=== PATIENT | male | born 1955 | race Caucasian/White ===

== ENCOUNTER 2016-08-27 09:00 | Outpatient (RCR) | payer BC ==
[2016-05-21 01:50] VITALS: BP 138/87
[~2016-08-27 09:00] MED LIST: AMOXICILLIN 8751 TAB PO; BOTT PO; ED NORCO 56 UDTAB/BO PO; GLIMEPIRIDE4 MG PO; GLIPIZIDE ER2.5 MG; GLUCOPHAGE1000 MG PO; METHOCARBAMOL750 MG PO; MOBIC15 MG PO; OXYCODONE5 M1 PO; PRINIVIL10 M1 PO; PRINIVIL2.5 MG PO; [UNRECOGNIZED DRUG - OTHER] PO
== END 2016-09-15 08:00 | disposition home or self-care (01) ==
LOC: PT 09:00
DX: M48.06 Spinal stenosis, lumbar region (principal)

== ENCOUNTER → 2017-02-25 | Outpatient (CLI) | payer BC ==
[2016-05-21 01:50] VITALS: BP 138/87
== END ==
LOC: LAB 07:40
DX: I10 Essential (primary) hypertension (principal); E11.9 Type 2 diabetes mellitus without complications

== ENCOUNTER → 2017-11-11 | Outpatient (CLI) | payer OTHER ==
[2016-05-21 01:50] VITALS: BP 138/87
== END ==
LOC: CARDREHAB 07:41 → CARDLAB 07:41
DX: R07.9 Chest pain, unspecified (principal)

== ENCOUNTER → 2017-12-23 | Outpatient (CLI) | payer OTHER ==
[2016-05-21 01:50] VITALS: BP 138/87
== END ==
LOC: RAD 09:53
DX: R10.9 Unspecified abdominal pain (principal)

== ENCOUNTER 2018-03-11 14:53 | Outpatient (RCR) | payer OTHER ==
[~2018-03-11] VITALS: Ht 172.7 cm; Wt 90.9 kg
[~2018-03-11 14:53] MED LIST changes: -LANTUS PEN100 U/ML SQ
[2018-03-11] MEDS ORDERED: LANTUS PEN100 U/ML SQ (15:49)
[2018-03-11 16:15] VITALS: BP 139/88
[2018-03-11 16:41] VITALS: BP 140/87
[2018-03-12 15:26] VITALS: BP 119/76
[2018-03-12 15:58] VITALS: BP 129/79
== END 2018-03-12 16:30 | disposition home or self-care (01) ==
LOC: AMSURD 14:53
DX: L03.114 Cellulitis of left upper limb (principal); B99.9 Unspecified infectious disease
CPT/HCPCS: J0696

== ENCOUNTER → 2018-03-11 | Outpatient (CLI) | payer OTHER ==
[2016-05-21 01:50] VITALS: BP 138/87
[~2018-03-11] MED LIST changes: +LANTUS PEN100 U/ML SQ
[2018-03-11 15:41] LABS: EOS # 0.2 (0.04-0.40); EOS % 1.7 % (0.0-4.0); HEMATOCRIT 39.6 % (42.0-52.0); HEMOGLOBIN 13.6 g/dL (13.5-18.0); LYMPH# 1.4 (1.50-4.00); MEAN CELL VOLUME 91 fl (78-100); MEAN CORPUSCULAR HEMOGLOBIN 31 pg (27-31); MEAN CORPUSCULAR HGB CONC 34 g/dL (33-37); MONO # 0.9 (0.20-0.80); NEU # 6.3 (1.40-6.50); PLATELET COUNT 200 K/mm3 (130-400); RED BLOOD COUNT 4.36 M/mm3 (4.20-5.60); RED CELL DISTRIBUTION WIDTH 12.1 % (11.5-14.5); WHITE BLOOD COUNT 8.8 K/mm3 (4.8-10.8)
[2018-03-11 15:51] LABS: BUN/CREATININE RATIO 18.8 (6.0-26.0); CALCIUM 9.3 mg/dL (8.4-10.2); POTASSIUM 4.6 mmol/L (3.6-5.0)
[2018-03-11 16:44] LABS: ERYTHROCYTE SEDIMENTATION RATE 79 mm/hr (0-20)
== END ==
LOC: LAB 14:06 → AMSURD 14:06
PROVIDERS: Family Medicine
DX: L03.114 Cellulitis of left upper limb (principal)

== ENCOUNTER → 2018-08-02 | Outpatient (CLI) | payer BC, OTHER ==
[~2018-08-02] MED LIST changes: +LANTUS PEN100 U/ML SQ
== END ==
LOC: RAD 09:39
DX: M77.31 Calcaneal spur, right foot (principal)

== ENCOUNTER → 2018-10-28 | Outpatient (CLI) | payer BC, OTHER ==
[2018-10-28 08:38] LABS: EOS % 0.3 % (0.0-4.0); HEMATOCRIT 40.3 % (42.0-52.0); HEMOGLOBIN 13.5 g/dL (13.5-18.0); LYMPH# 1.7 (1.50-4.00); MEAN CELL VOLUME 91 fl (78-100); MEAN CORPUSCULAR HEMOGLOBIN 31 pg (27-31); MEAN CORPUSCULAR HGB CONC 34 g/dL (33-37); MONO # 0.5 (0.20-0.80); NEU # 3.8 (1.40-6.50); PLATELET COUNT 143 K/mm3 (130-400); RED BLOOD COUNT 4.42 M/mm3 (4.20-5.60); RED CELL DISTRIBUTION WIDTH 12.5 % (11.5-14.5); WHITE BLOOD COUNT 6.1 K/mm3 (4.8-10.8)
[2018-10-28 08:44] LABS: ALBUMIN 4.4 g/dL (3.5-5.0); CALCIUM 9.1 mg/dL (8.4-10.2); POTASSIUM 4.2 mmol/L (3.6-5.0); TOTAL BILIRUBIN 0.5 mg/dL (0.2-1.3); TOTAL PROTEIN 7.3 g/dL (6.3-8.2)
[2018-10-28 09:18] LABS: MEAN PLATELET VOLUME 12.3 fl (7.4-10.4)
== END ==
LOC: LAB 07:05
PROVIDERS: Family Medicine
DX: I10 Essential (primary) hypertension (principal); E11.9 Type 2 diabetes mellitus without complications

== ENCOUNTER → 2019-08-31 | Outpatient (CLI) | payer OTHER | LOC: RAD 09:28 | DX: M47.816 Spondylosis without myelopathy or radiculopathy, lumbar region (principal) ==

== ENCOUNTER → 2020-09-26 | Outpatient (CLI) | payer OTHER | LOC: LAB 09:04 | DX: I25.10 Atherosclerotic heart disease of native coronary artery without angina pectoris (principal); I10 Essential (primary) hypertension; E78.2 Mixed hyperlipidemia; Z78.9 Other specified health status ==

== ENCOUNTER → 2020-12-09 | Outpatient (CLI) | payer OTHER | LOC: RAD 09:25 | DX: M47.816 Spondylosis without myelopathy or radiculopathy, lumbar region (principal); M47.817 Spondylosis without myelopathy or radiculopathy, lumbosacral region; M48.061 Spinal stenosis, lumbar region without neurogenic claudication; M51.16 Intervertebral disc disorders with radiculopathy, lumbar region; Z98.890 Other specified postprocedural states | CPT/HCPCS: A9585 ==

== ENCOUNTER → 2020-12-11 | Outpatient (CLI) | payer OTHER | LOC: RAD 12-09 10:00 | DX: M47.812 Spondylosis without myelopathy or radiculopathy, cervical region (principal); M48.02 Spinal stenosis, cervical region; M51.14 Intervertebral disc disorders with radiculopathy, thoracic region; M48.04 Spinal stenosis, thoracic region ==

== ENCOUNTER 2021-01-29 12:53 | Outpatient (RCR) | payer OTHER | END 2021-02-12 17:00 | disposition still patient (30) | LOC: PT 12:53 | DX: M51.16 Intervertebral disc disorders with radiculopathy, lumbar region (principal) ==

== ENCOUNTER → 2021-01-29 | Outpatient (REF) | LOC: LAB 07:54 | DX: Z00.00 Encounter for general adult medical examination without abnormal findings (principal); E78.5 Hyperlipidemia, unspecified; E11.9 Type 2 diabetes mellitus without complications ==

== ENCOUNTER → 2021-05-15 | Outpatient (CLI) | payer OTHER | LOC: AMSURD 14:04 | DX: Z01.812 Encounter for preprocedural laboratory examination (principal) ==

== ENCOUNTER → 2021-05-15 | Outpatient (REF) | LOC: LAB 14:04 → EDSTATUS 17:26 | DX: Z01.812 Encounter for preprocedural laboratory examination (principal); K90.9 Intestinal malabsorption, unspecified; E11.37X9 Type 2 diabetes mellitus with diabetic macular edema, resolved following treatment, unspecified eye ==

== ENCOUNTER → 2022-02-16 | Outpatient (CLI) | payer BC ==
[2022-02-16 07:42] LABS: BASO # 0.04 K/mm3 (0.02-0.10); EOS # 0.23 K/mm3 (0.04-0.40); EOS % 4.8 % (0.0-4.0); HEMATOCRIT 42.9 % (42.0-52.0); HEMOGLOBIN 14.8 g/dL (13.5-18.0); MEAN CELL VOLUME 91 fl (78-100); MEAN CORPUSCULAR HEMOGLOBIN 31 pg (27-31); MEAN CORPUSCULAR HGB CONC 35 g/dL (33-37); MONO # 0.42 K/mm3 (0.20-0.80); NEU # 2.58 K/mm3 (1.40-6.50); PLATELET COUNT 123 K/mm3 (130-400); RED BLOOD COUNT 4.74 M/mm3 (4.20-5.60); RED CELL DISTRIBUTION WIDTH 12.1 % (11.5-14.5); WHITE BLOOD COUNT 4.8 K/mm3 (4.8-10.8)
[2022-02-16 08:49] LABS: POTASSIUM 4.4 mmol/L (3.5-5.1)
[2022-02-16 08:50] LABS: ALBUMIN 4.2 g/dL (3.4-4.8)
[2022-02-16 08:51] LABS: CALCIUM 9.7 mg/dL (8.3-10.5)
[2022-02-16 08:52] LABS: TOTAL PROTEIN 6.9 g/dL (6.2-8.1)
[2022-02-16 08:54] LABS: TOTAL BILIRUBIN 0.7 mg/dL (0.2-1.2)
== END ==
LOC: LAB 07:19 → EDSTATUS 11:53
PROVIDERS: Family Medicine
DX: Z00.00 Encounter for general adult medical examination without abnormal findings (principal); E78.5 Hyperlipidemia, unspecified; E11.9 Type 2 diabetes mellitus without complications; E29.1 Testicular hypofunction; D69.6 Thrombocytopenia, unspecified; R74.01 Elevation of levels of liver transaminase levels

== ENCOUNTER → 2022-02-18 | Outpatient (CLI) | payer OTHER | LOC: RAD 07:25 | DX: K76.0 Fatty (change of) liver, not elsewhere classified (principal) ==

== ENCOUNTER → 2022-10-13 | Outpatient (CLI) | payer MEDICARE | LOC: RAD 13:56 | DX: R06.09 Other forms of dyspnea (principal) ==

== ENCOUNTER → 2022-10-14 | Outpatient (CLI) | payer MEDICARE ==
[2022-10-14 08:49] LABS: BASO # 0.02 K/mm3 (0.02-0.10); EOS # 0.16 K/mm3 (0.04-0.40); HEMATOCRIT 45.4 % (42.0-52.0); HEMOGLOBIN 15.5 g/dL (13.5-18.0); LYMPH# 1.48 K/mm3 (1.50-4.00); MEAN CELL VOLUME 92 fl (78-100); MEAN CORPUSCULAR HEMOGLOBIN 32 pg (27-31); MEAN CORPUSCULAR HGB CONC 34 g/dL (33-37); MEAN PLATELET VOLUME 11.7 fl (7.4-10.4); MONO # 0.44 K/mm3 (0.20-0.80); NEU # 3.28 K/mm3 (1.40-6.50); PLATELET COUNT 118 K/mm3 (130-400); RED BLOOD COUNT 4.92 M/mm3 (4.20-5.60); RED CELL DISTRIBUTION WIDTH 12.1 % (11.5-14.5); WHITE BLOOD COUNT 5.4 K/mm3 (4.8-10.8)
[2022-10-14 08:52] LABS: POTASSIUM 4.4 mmol/L (3.5-5.1)
[2022-10-14 08:53] LABS: ALBUMIN 4.2 g/dL (3.4-4.8)
[2022-10-14 08:54] LABS: CALCIUM 9.5 mg/dL (8.3-10.5)
[2022-10-14 08:55] LABS: TOTAL PROTEIN 7.1 g/dL (6.2-8.1)
[2022-10-14 08:57] LABS: TOTAL BILIRUBIN 0.5 mg/dL (0.2-1.2)
[2022-10-14 09:29] LABS: PROTHROMBIN TIME 11.2 SECONDS (9.0-12.0)
== END ==
LOC: LAB 08:32
DX: R23.3 Spontaneous ecchymoses (principal); E78.2 Mixed hyperlipidemia; R06.09 Other forms of dyspnea

== ENCOUNTER → 2022-11-22 | Outpatient (CLI) | payer MEDICARE | LOC: RAD 13:00 → VAS 13:03 | DX: I34.0 Nonrheumatic mitral (valve) insufficiency (principal); I10 Essential (primary) hypertension; I25.10 Atherosclerotic heart disease of native coronary artery without angina pectoris ==

== ENCOUNTER → 2023-07-21 | Outpatient (CLI) | payer MEDICARE ==
[~2023-07-21] MED LIST changes: +CARVEDILOL25 MG PO; +DULOXETINE30 MG PO; +FLUTICASONE-VI1 EACH IH; +GLUCOTROL 5M5 MG/TAB PO; +ISOSORBIDE30 MG PO; +LEVOTHYROXIN0.025 MG PO; +LISINOPRIL20 MG PO; +NEURONTIN300 MG/CAP PO; +PANTOPRAZOLE SO40 MG PO; +PAROXETINE HYDR10 MG PO; +ROSUVASTATIN CA40 MG PO; +ST. JOSEPH ASPI81 M1 PO; +TESTOSTERO200 MG/1 M IM
== END ==
LOC: LAB 12:36
DX: Z01.818 Encounter for other preprocedural examination (principal); E11.9 Type 2 diabetes mellitus without complications

== ENCOUNTER → 2023-07-22 | Outpatient (CLI) | payer MEDICARE | LOC: RAD 11:44 | DX: I67.1 Cerebral aneurysm, nonruptured (principal); I65.23 Occlusion and stenosis of bilateral carotid arteries | CPT/HCPCS: Q9967 ==

== ENCOUNTER 2023-08-01 09:53 | Outpatient (RCR) | payer MEDICARE | END 2023-08-21 | disposition home or self-care (01) | LOC: PT | DX: M47.812 Spondylosis without myelopathy or radiculopathy, cervical region (principal) ==

== ENCOUNTER 2023-08-23 08:00 | Outpatient (RCR) | payer MEDICARE | END 2023-09-21 | disposition home or self-care (01) | LOC: PT | DX: M47.812 Spondylosis without myelopathy or radiculopathy, cervical region (principal) ==

== ENCOUNTER 2023-09-22 08:00 | Outpatient (RCR) | payer MEDICARE | END 2023-09-27 17:00 | disposition home or self-care (01) | LOC: PT 08:00 | DX: M47.812 Spondylosis without myelopathy or radiculopathy, cervical region (principal) ==

== ENCOUNTER → 2023-10-19 | Outpatient (CLI) | payer MEDICARE ==
[2023-10-19 09:06] LABS: BASO # 0.01 K/mm3 (0.02-0.10); EOS # 0.15 K/mm3 (0.04-0.40); EOS % 1.8 % (0.0-4.0); HEMOGLOBIN 13.9 g/dL (13.5-18.0); LYMPH# 1.74 K/mm3 (1.50-4.00); MEAN CELL VOLUME 90 fl (78-100); MEAN CORPUSCULAR HEMOGLOBIN 30 pg (27-31); MEAN CORPUSCULAR HGB CONC 34 g/dL (33-37); MEAN PLATELET VOLUME 11.5 fl (7.4-10.4); NEU # 5.97 K/mm3 (1.40-6.50); PLATELET COUNT 143 K/mm3 (130-400); RED BLOOD COUNT 4.57 M/mm3 (4.20-5.60); RED CELL DISTRIBUTION WIDTH 12.1 % (11.5-14.5); WHITE BLOOD COUNT 8.5 K/mm3 (4.8-10.8)
[2023-10-19 09:10] LABS: ALBUMIN 4.2 g/dL (3.4-4.8)
[2023-10-19 09:11] LABS: CALCIUM 9.6 mg/dL (8.3-10.5)
[2023-10-19 09:13] LABS: TOTAL PROTEIN 7.3 g/dL (6.2-8.1)
[2023-10-19 09:15] LABS: TOTAL BILIRUBIN 0.4 mg/dL (0.2-1.2)
== END ==
LOC: LAB 08:52
PROVIDERS: Nurse Practitioner
DX: R10.31 Right lower quadrant pain (principal)

== ENCOUNTER → 2024-02-17 | Outpatient (CLI) | payer MEDICARE ==
[2024-02-17 12:49] LABS: BASO # 0.02 K/mm3 (0.02-0.10); EOS # 0.11 K/mm3 (0.04-0.40); EOS % 2.3 % (0.0-4.0); HEMATOCRIT 39.7 % (42.0-52.0); HEMOGLOBIN 13.5 g/dL (13.5-18.0); LYMPH# 1.48 K/mm3 (1.50-4.00); MEAN CELL VOLUME 88 fl (78-100); MEAN CORPUSCULAR HEMOGLOBIN 30 pg (27-31); MEAN CORPUSCULAR HGB CONC 34 g/dL (33-37); MEAN PLATELET VOLUME 12.4 fl (7.4-10.4); MONO # 0.42 K/mm3 (0.20-0.80); NEU # 2.76 K/mm3 (1.40-6.50); PLATELET COUNT 109 K/mm3 (130-400); RED BLOOD COUNT 4.51 M/mm3 (4.20-5.60); RED CELL DISTRIBUTION WIDTH 12.3 % (11.5-14.5); WHITE BLOOD COUNT 4.8 K/mm3 (4.8-10.8)
[2024-02-17 12:56] LABS: ALBUMIN 4.3 g/dL (3.4-4.8)
[2024-02-17 12:57] LABS: CALCIUM 9.7 mg/dL (8.3-10.5)
[2024-02-17 12:58] LABS: TOTAL PROTEIN 7.1 g/dL (6.2-8.1)
[2024-02-17 13:00] LABS: TOTAL BILIRUBIN 0.4 mg/dL (0.2-1.2)
== END ==
LOC: LAB 12:30
PROVIDERS: Nurse Practitioner
DX: Z00.00 Encounter for general adult medical examination without abnormal findings (principal); E78.5 Hyperlipidemia, unspecified; E11.9 Type 2 diabetes mellitus without complications; E03.9 Hypothyroidism, unspecified; R10.11 Right upper quadrant pain

== ENCOUNTER → 2024-04-27 | Outpatient (CLI) | payer MEDICARE | LOC: RAD 07:21 | DX: M47.816 Spondylosis without myelopathy or radiculopathy, lumbar region (principal); Z98.890 Other specified postprocedural states ==

== ENCOUNTER 2024-05-29 09:20 | Outpatient (RCR) | payer MEDICARE | END 2024-06-21 | disposition home or self-care (01) | LOC: PT | DX: M48.062 Spinal stenosis, lumbar region with neurogenic claudication (principal) ==

== ENCOUNTER 2024-06-23 18:06 | Emergency (ER) | payer MEDICARE ==
[~2024-06-23] VITALS: Ht 167.6 cm; Wt 96.8 kg
[2024-06-23] MEDS ORDERED: PREGABALIN75 MG PO (18:28)
[2024-06-23] MEDS ORDERED: PROAIR HFA0.09 MG/AC IH (18:29)
[2024-06-23] MEDS ORDERED: NITROGLYCERIN0.4 M1 SL (18:29)
[2024-06-23] MEDS ORDERED: XULTOPHY 100 UNI3 ML SQ (18:29)
[2024-06-23 18:35] LABS: HEMATOCRIT 42.8 % (42.0-52.0); HEMOGLOBIN 14.7 g/dL (13.5-18.0); MEAN CELL VOLUME 91 fl (78-100); MEAN CORPUSCULAR HEMOGLOBIN 31 pg (27-31); MEAN CORPUSCULAR HGB CONC 34 g/dL (33-37); MEAN PLATELET VOLUME 12.4 fl (7.4-10.4); PLATELET COUNT 110 K/mm3 (130-400); RED BLOOD COUNT 4.73 M/mm3 (4.20-5.60); RED CELL DISTRIBUTION WIDTH 12.1 % (11.5-14.5); WHITE BLOOD COUNT 8.2 K/mm3 (4.8-10.8)
[2024-06-23 18:43] LABS: SODIUM 137 mmol/L (136-145)
[2024-06-23 18:44] LABS: CALCIUM 9.1 mg/dL (8.3-10.5)
[2024-06-23 18:45] LABS: ALBUMIN 4.1 g/dL (3.4-4.8); TOTAL PROTEIN 6.9 g/dL (6.2-8.1)
[2024-06-23] MEDS ORDERED: Mag/Al Hydrox/Simeth Susp 30 ML CUP PO ONE (18:45)
[2024-06-23 18:47] LABS: GLUCOSE 266 mg/dL (75-110); TOTAL BILIRUBIN 0.5 mg/dL (0.2-1.2)
[2024-06-23 18:49] LABS: CARBON DIOXIDE 22 mmol/L (23-31)
[2024-06-23 18:50] LABS: AST-SGOT 31 U/L (5-34)
[2024-06-23 18:52] LABS: ALT/SGPT 35 U/L (0-55); LIPASE 72 U/L (8-78)
[2024-06-23 18:53] LABS: BAND 6 % (0-10); LYMPHOCYTE 7 % (20-51); MONOCYTE 4 % (3-10); NEUTROPHILS 75 % (42-75)
[2024-06-23 18:54] LABS: D-DIMER 0.84 mg/L FEU (0.15-0.50)
[2024-06-23 19:00] LABS: TROPONIN-I < 0.030 ng/mL (0.00-0.033)
[2024-06-23] MEDS ORDERED: Iohexol 350 - 100 ML VIAL IV ONE (19:30)
[2024-06-23] MEDS ORDERED: MORGIDOX 1X100100 MG PO (21:59)
[2024-06-23 23:39] VITALS: BP 136/82
== END 2024-06-23 22:06 | disposition home or self-care (01) ==
LOC: ED 18:06
PROVIDERS: Family Medicine
DX: K21.9 Gastro-esophageal reflux disease without esophagitis (principal); E11.9 Type 2 diabetes mellitus without complications; R91.8 Other nonspecific abnormal finding of lung field; I25.42 Coronary artery dissection; Z79.899 Other long term (current) drug therapy; Z87.891 Personal history of nicotine dependence; Z86.79 Personal history of other diseases of the circulatory system
CPT/HCPCS: Q9967